=== PATIENT | male | born 1995 | race Caucasian/White ===

== ENCOUNTER 2020-05-30 05:35 | Outpatient (CLI) | payer OTHER ==
[~2020-05-30] VITALS: Ht 172 cm; Wt 79.0 kg
[~2020-05-30 05:35] MED LIST: ACET-2222 PO; ACHD5005 PO; CIPR500T78 PO; DOCU-143 PO; HYDR-757 PO; METH4TAB PO; METR500T PO
[2020-06-06] MEDS ORDERED: DOCU-143 PO (12:00)
[2020-06-06] MEDS ORDERED: ACHD5005 PO (12:00)
== END 2020-06-04 09:02 | disposition home or self-care (01) ==
LOC: PREOP 05:35
PROVIDERS: ATTEND Surgery
DX: Z01.818 Encounter for other preprocedural examination (principal)

== ENCOUNTER 2020-06-06 08:46 | Day surgery (SDC) | payer OTHER ==
[2020-06-06] VITALS (11 sets, daily range): BP systolic 95–135; BP diastolic 51–98
[~2020-06-06] VITALS: Ht 172 cm; Wt 79.0 kg
[2020-06-06] MEDS ORDERED: LIDOCAINE/EPI 1%-1:100,000 (XYLOCAINE) 20ML ONE (08:50)
[2020-06-06] MEDS ORDERED: GLYCOPYRROLATE 0.2 MG/ML (ROBINUL) 2 ML VIAL ONE (09:02)
[2020-06-06] MEDS ORDERED: NEOSTIGMINE 3 MG/3 ML VIAL ONE (09:02)
[2020-06-06] MEDS ORDERED: LIDOCAINE PF 2% 5 ML (XYLOCAINE) VIAL ONE (09:02)
[2020-06-06] MEDS ORDERED: MIDAZOLAM 2 MG/2 ML (VERSED) VIAL ONE (09:02)
[2020-06-06] MEDS ORDERED: ONDANSETRON 4 MG/2 ML (SDV) Z0FRAN ONE (09:02)
[2020-06-06] MEDS ORDERED: SEVOFLURANE (ULTANE) 15 ML INHAL SOLN ONE (09:02)
[2020-06-06] MEDS ORDERED: ROCURONIUM 10 MG/ML 5 ML SYRINGE IV ONE (09:02)
[2020-06-06] MEDS ORDERED: proPOfol 200 MG/20 ML (DIPRIVAN) VIAL IV ONE (09:02)
[2020-06-06] MEDS ORDERED: fentaNYL INJ 100 MCG/2 ML AMP ONE ×2 (09:03→09:56)
[2020-06-06] MEDS ORDERED: ceFAZolin INJECTION 1,000 MG ONE (09:16)
[2020-06-06] MEDS ORDERED: WATER (STERILE) FOR INJECTION 10 ML ONE (09:16)
[2020-06-06] MEDS ORDERED: ceFAZolin INJECTION 1,000 MG in WATER (STERILE) FOR INJECTION 10 ML IV ONE (09:30)
[2020-06-06] MEDS ORDERED: LACTATED RINGERS 1,000 ML IV PRN (09:30)
[2020-06-06] MEDS ORDERED: fentaNYL INJ 100 MCG/2 ML AMP IVP ONE (10:45)
[2020-06-06] MEDS ORDERED: morphine INJ 10 MG/ML 1ML (SYR OR VIAL) IVP ONE (10:45)
--- NOTE | 2020-06-06 11:59 | Discharge Inst-Simple/Standard ---
Discharge Inst-Standard Discharge Medications New, Converted or Re-Newed RX: RX on Chart Patient Instructions/Follow Up Plan of Care/Instructions/FU: 2 weeks Sathish Activity as Tolerated: No Discharge Diet: Regular Diet Other Inst to Patient Follow up Appt: Make appointment for 2 week. Instructions: No lifting greater than 10 pounds. No strenuous activity. May shower in 24 hours, no tub bath or soaking. Use incentive spirometer at home as directed. No Smoking Skin/Wound Care: Keep area clean and dry. No tub baths or soaking. Use soap and water after bowel movements in the shower. Symptoms to Report: Appetite Changes, Extremity Discoloration, Numbness/Tingling, Swelling Increased, Bleeding Excessive, Eyesight Changes, Pain Increased, Urine Color Change, Constipation(Persistent), Fever over 101 degree F, Pain/Pressure in chest, Urinating Difficulty, Cough Up/Vomit Blood, Heart Beat Irreg/Pounding, Pain/Pressure in jaw, Vaginal Bleeding Increase, Cramps in feet or legs, Lightheadedness, Pain/Pressure in shoulder, Diarrhea(Persistent), Memory Changes Suddenly, Questions/Concerns, Weight gain consecutive days, Dizziness/Fainting, Nausea/Vomiting, Shortness of Breath, Weight gain over 2 pounds If questions or concerns contact your physician Or seek help at emergency department. JADIEL KURTZ DO Jun 06, 2020 11:59
[2020-06-06] MEDS ORDERED: ACHD5005 PO (12:00)
[2020-06-06] MEDS ORDERED: DOCU-143 PO (12:00)
--- NOTE | 2020-06-06 12:02 | Progress Note-Post Operative ---
Post-Operative Progess Note Surgeon (s)/Landscaping And Groundskeeping Laborer (s) Surgeon JADIEL KURTZ DO Landscaping And Groundskeeping Laborer: na Pre-Operative Diagnosis pilonidal cyst Post-Operative Diagnosis same Procedure & Operative Findings Date of Procedure 06/06/20 Procedure Performed/Findings excision pilonidal cyst Anesthesia Type general Estimated Blood Loss Estimated blood loss (mL): minimal Specimens/Packing Specimens Removed skin and subcutaneous tissue JADIEL KURTZ DO Jun 06, 2020 12:02
--- NOTE | 2020-06-06 14:50 | Anesthesia-General Post-Op ---
General Patient Condition Mental Status/LOC: Same as Preop Cardiovascular: Satisfactory Nausea/Vomiting: Absent Respiratory: Satisfactory Pain: Controlled Complications: Absent Post Op Complications Complications None Follow Up Care/Instructions Patient Instructions None needed. Anesthesia/Patient Condition Patient Condition Patient is doing well, no complaints, stable vital signs, no apparent adverse anesthesia problems. No complications reported per nursing. PETE STATON CRNA Jun 06, 2020 14:50
--- NOTE | 2020-06-06 16:16 | OPERATIVE REPORT ---
DATE OF SERVICE: 06/06/2020 PREOPERATIVE DIAGNOSIS: Recurrent pilonidal cyst. POSTOPERATIVE DIAGNOSIS: Recurrent pilonidal cyst. PROCEDURE: Excision of recurrent pilonidal cyst 6.5 x 2.5 x 3 cm. SURGEON: Jadiel Bower DO ANESTHESIA: General. ESTIMATED BLOOD LOSS: Minimal. COMPLICATIONS: None. INDICATIONS: The patient is a 25-year-old male with recurrent pilonidal cyst. He understands risks and benefits of procedure and wished to proceed with procedure. Consent was signed in the chart. DESCRIPTION OF PROCEDURE: The patient was taken to the operating suite, was prepped and draped in sterile fashion. Surgical pause was performed. Elliptical incision was made around the pilonidal cyst and evidence of disease. Cautery was used to dissect down through the subcutaneous tissues around the tissue until the sacrum was encountered. This was then continued to be dissected around off of the sacrum until the specimen was completely removed. Hemostasis was achieved. The wound was then irrigated with copious amounts of irrigation and the skin was then closed with 0 Prolene in a vertical mattress in simple interrupted fashion. The area was then washed and dried and sterile bandages were applied. Before closure, local anesthetic was infiltrated throughout the wound area. Job ID: [id number] DocumentID: [id number] Dictated Date: 06/06/2020 12:04:35 Box Blank Machine Operator Helper Date: 06/06/2020 16:15:01 Dictated By: JADIEL BOWER DO
== END 2020-06-06 12:25 ==
LOC: SDC 08:46
PROVIDERS: ATTEND Surgery
DX: L05.91 Pilonidal cyst without abscess (principal)
CPT/HCPCS: 87081

== ENCOUNTER 2020-06-09 12:28 | Emergency (ER) | payer OTHER ==
[~2020-06-09] VITALS: Ht 172.7 cm; Wt 77.1 kg
[2020-06-09] MEDS ORDERED: KETOROLAC 30 MG/ML VIAL ONE (13:13)
[2020-06-09] MEDS ORDERED: NS IV 1000 ML 1,000 ML ONE (13:13)
[2020-06-09] MEDS ORDERED: ONDANSETRON 4 MG/2 ML (SDV) Z0FRAN ONE (13:13)
--- NOTE | 2020-06-09 13:26 | ED GI ---
General Chief Complaint: Abdominal/GI Problems Stated Complaint: L SIDE LOWER BACK PAIN/POST PILONIDAL CYST OP Nursing Triage Note: PT AMB TO [facility] WITH COMPLAINT OF LLQ PAIN. STATES HE HAD PILONDIAL CYST SURGERY ON WEDNESDAY. STATES TOOK A HYDROCODONE AND STOOL SOFTENER EARLIER WITH NO RELIEF OF PAIN. Sepsis Screen: No Definite Risk Source of Information: Patient Exam Limitations: No Limitations History of Present Illness Date Seen by Provider: June 09, 2020 Time Seen by Provider: 13:25 Initial Comments To ER with severe left flank pain. He had a pilonidal cyst done on . That seems to be healing well and is essentially pain-free. He awakened this morning with severe intolerable left flank pain. Timing/Duration: 1-2 Days Severity/Quality: Moderate Location: Flank Radiation: No Radiation Activities at Onset: None Associated Symptoms: Denies Symptoms Allergies and Home Medications Allergies Coded Allergies: No Known Drug Allergies (Unverified , 06/06/20) Home Medications Docusate Sodium 100 Mg Capsule, 100 MG PO DAILY Prescribed by: JADIEL KURTZ on 06/06/20 1200 Hydrocodone/Acetaminophen 1 Each Tablet, 1 EACH PO Q4H PRN for PAIN-MODERATE (5- 7) Prescribed by: JADIEL KURTZ on 06/06/20 1200 Patient Home Medication List Home Medication List Reviewed: Yes Review of Systems Review of Systems Constitutional: see HPI EENTM: No Symptoms Reported Respiratory: No Symptoms Reported Cardiovascular: No Symptoms Reported Gastrointestinal: See HPI Genitourinary: No Symptoms Reported Musculoskeletal: no symptoms reported Skin: no symptoms reported Psychiatric/Neurological: No Symptoms Reported Endocrine: No Symptoms Reported Hematologic/Lymphatic: No Symptoms Reported Past Xfsttqi-Ywrafb-Kmavhy Hx Patient Social History Alcohol Use: Occasionally Uses Smoking Status: Never a Smoker Recent Infectious Disease Expo: No Immunizations Up To Date Tetanus Booster (TDap): Unknown Seasonal Allergies Seasonal Allergies: No Past Medical History Surgeries: Yes (dental, pilonidal cyst) Respiratory: No Currently Using CPAP: No Cardiac: No Neurological: No Genitourinary: No Gastrointestinal: No Musculoskeletal: No Endocrine: No HEENT: No Cancer: No Psychosocial: No Integumentary: No Blood Disorders: No Physical Exam Vital Signs Vital Signs - First Documented 06/09/20 12:46 Pulse 68 Resp 17 B/P (MAP) 145/99 (114) Pulse Ox 99 O2 Delivery Room Air Capillary Refill : Less Than 3 Seconds Height/Weight/BMI Height: 5'7.00" Weight: 155lbs. 0.0oz. 70.855225pv; 25.00 BMI Method:Stated General Appearance: WD/WN, moderate distress (Appears quite uncomfortable, writhing.) Respiratory: normal breath sounds, no respiratory distress, no accessory muscle use Cardiovascular: regular rate, rhythm, no murmur Gastrointestinal: normal bowel sounds, non tender, soft Extremities: normal range of motion, non-tender Neurologic/Psychiatric: alert, normal mood/affect, oriented x 3 Skin: normal color, warm/dry Progress/Results/Core Measures Results/Orders Lab Results Laboratory Tests Test 06/09/20 13:25 Range/Units White Blood Count 12.4 H 4.3-11.0 10^3/uL Red Blood Count 5.61 H 4.30-5.52 10^6/uL Hemoglobin 15.9 13.3-17.7 g/dL Hematocrit 46 40-54 % Mean Corpuscular Volume 81 80-99 fL Mean Corpuscular Hemoglobin 28 25-34 pg Mean Corpuscular Hemoglobin Concent 35 32-36 g/dL Red Cell Distribution Width 11.9 10.0-14.5 % Platelet Count 291 130-400 10^3/uL Mean Platelet Volume 9.6 9.0-12.2 fL Immature Granulocyte % (Auto) 0 % Neutrophils (%) (Auto) 83 H 42-75 % Lymphocytes (%) (Auto) 11 L 12-44 % Monocytes (%) (Auto) 5 0-12 % Eosinophils (%) (Auto) 0 0-10 % Basophils (%) (Auto) 0 0-10 % Neutrophils # (Auto) 10.3 H 1.8-7.8 10^3/uL Lymphocytes # (Auto) 1.4 1.0-4.0 10^3/uL Monocytes # (Auto) 0.7 0.0-1.0 10^3/uL Eosinophils # (Auto) 0.0 0.0-0.3 10^3/uL Basophils # (Auto) 0.1 0.0-0.1 10^3/uL Immature Granulocyte # (Auto) 0.1 0.0-0.1 10^3/uL Sodium Level 137 135-145 MMOL/L Potassium Level 3.8 3.6-5.0 MMOL/L Chloride Level 103 98-107 MMOL/L Glucose Level 115 H 70-105 MG/DL Calcium Level 10.1 8.5-10.1 MG/DL Corrected Calcium 8.5-10.1 MG/DL Total Protein 8.0 6.4-8.2 GM/DL Albumin 4.6 H 3.2-4.5 GM/DL My Orders Orders - JARON MCNALLY APRN Cbc With Automated Diff (06/09/20 13:22) Comprehensive Metabolic Panel (06/09/20 13:22) Ua Culture If Indicated (06/09/20 13:22) Ed Iv/Invasive Line Start (06/09/20 13:22) Ct Abd/Pelvis Wo(Kidney Stone) (06/09/20 13:22) Abdomen/Kub 1view (06/09/20 13:22) Ns Iv 1000 Ml (Sodium Chloride 0.9%) (06/09/20 13:30) Ketorolac Injection (Toradol Injection) (06/09/20 13:30) Ondansetron Injection (Zofran Injectio (06/09/20 13:30) Medications Given in ED Current Medications Medications Dose Ordered Sig/Aiden Route Start Time Stop Time Status Last Admin Dose Admin Ketorolac Tromethamine 30 mg ONCE ONCE IVP 06/09/20 13:30 06/09/20 13:31 DC 06/09/20 13:24 30 MG Ondansetron HCl 4 mg ONCE ONCE IVP 06/09/20 13:30 06/09/20 13:31 DC 06/09/20 13:24 4 MG Vital Signs/I&O 06/09/20 12:46 Pulse 68 Resp 17 B/P (MAP) 145/99 (114) Pulse Ox 99 O2 Delivery Room Air Blood Pressure Mean: 114 Departure Communication (Admissions) [facility] REC#: [id number] PT STATUS: REG ER : 1995 PHYSICIAN: JARON MCNALLY APRN ADMIT DATE: 06/09/20/ER Draft Date of Exam:06/09/20 CT ABD/PELVIS WO(KIDNEY STONE) PROCEDURE: CT urinary tract, rule out kidney stone. TECHNIQUE: Multiple contiguous axial images were obtained through the abdomen and pelvis without the use of intravenous contrast. Auto Exposure Controls were utilized during the CT exam to meet ALARA standards for radiation dose reduction. INDICATION: Left flank pain. COMPARISON: None. DISCUSSION: The lung bases are well aerated. Normal heart size. No pleural or pericardial fluid. The gallbladder, liver, pancreas, stomach, spleen, and adrenal glands are unremarkable. There is a 3 mm stone within the proximal left ureter with mild left hydronephrosis. 2 mm nonobstructing right renal calculus. No hydronephrosis on the right. No evidence for appendicitis. No obstruction, pneumatosis, or pneumoperitoneum. No ascites or pathologically enlarged lymph nodes identified. The aorta is normal in caliber. Bladder is mostly decompressed. Prostate is normal in size. No acute osseous abnormality identified. IMPRESSION: 1. 3 mm stone within the proximal left ureter with mild left hydronephrosis. 2. Punctate nonobstructing right renal calculus. Dictated on workstation # [id number] Dict: 06/09/20 1344 Trans: 06/09/20 1349 [id number] [id number] Interpreted by: EDNA ERIC MD Electronically signed by: Impression Primary Impression: Left ureteral stone Disposition: HOME, SELF-CARE Condition: Improved Departure-Patient Inst. Decision time for Depature: 13:49 Referrals: NO,LOCAL PHYSICIAN (PCP) Primary Care Physician DEYA POTTS MD Patient Instructions: Kidney Stone, Adult ED Add. Discharge Instructions: 1. Return to ER for any concerns. Take ibuprofen 800 mg which is 4 tablets every 8 hours in addition to the hydrocodone. Try to stay ahead of the pain. We will provide you with a strainer to urinate through. You should be able to see the stone when you pass it which may take anywhere from 0-3 or 4 days. If you do not pass it call To will. Return to ER for any intolerable pain fevers vomiting. All discharge instructions reviewed with patient and/or family. Voiced understanding. Scripts Cefuroxime Axetil (Cefuroxime) 250 Mg Tablet 250 MG PO BID, #10 TAB Prov: JARON MCNALLY APRN 06/09/20 JARON MCNALLY APRN June 09, 2020 13:26
[2020-06-09 13:29] LABS: BASOPHILS # (AUTO) 0.1 10^3/uL (0.0-0.1); BASOPHILS % (AUTO) 0 % (0-10); EOSINOPHILS % (AUTO) 0 % (0-10); HEMATOCRIT 46 % (40-54); HEMOGLOBIN 15.9 g/dL (13.3-17.7); LYMPHOCYTES # (AUTO) 1.4 10^3/uL (1.0-4.0); LYMPHOCYTES % (AUTO) 11 % (12-44); MEAN CORPUSCULAR HEMOGLOBIN 28 pg (25-34); MEAN CORPUSCULAR HGB CONC 35 g/dL (32-36); MEAN CORPUSCULAR VOLUME 81 fL (80-99); MEAN PLATELET VOLUME 9.6 fL (9.0-12.2); MONOCYTES # (AUTO) 0.7 10^3/uL (0.0-1.0); MONOCYTES % (AUTO) 5 % (0-12); NEUTROPHILS # (AUTO) 10.3 10^3/uL (1.8-7.8); NEUTROPHILS % (AUTO) 83 % (42-75); PLATELET COUNT 291 10^3/uL (130-400); WHITE BLOOD COUNT 12.4 10^3/uL (4.3-11.0)
[2020-06-09] MEDS ORDERED: NS IV 1000 ML 1,000 ML IV SCH (13:30)
[2020-06-09] MEDS ORDERED: ONDANSETRON 4 MG/2 ML (SDV) Z0FRAN IVP ONE (13:30)
[2020-06-09] MEDS ORDERED: KETOROLAC 30 MG/ML VIAL IVP ONE (13:30)
--- NOTE | 2020-06-09 13:50 | Diagnostic Imaging Report ---
PROCEDURE: CT urinary tract, rule out kidney stone. TECHNIQUE: Multiple contiguous axial images were obtained through the abdomen and pelvis without the use of intravenous contrast. Auto Exposure Controls were utilized during the CT exam to meet ALARA standards for radiation dose reduction. INDICATION: Left flank pain. COMPARISON: None. DISCUSSION: The lung bases are well aerated. Normal heart size. No pleural or pericardial fluid. The gallbladder, liver, pancreas, stomach, spleen, and adrenal glands are unremarkable. There is a 3 mm stone within the proximal left ureter with mild left hydronephrosis. 2 mm nonobstructing right renal calculus. No hydronephrosis on the right. No evidence for appendicitis. No obstruction, pneumatosis, or pneumoperitoneum. No ascites or pathologically enlarged lymph nodes identified. The aorta is normal in caliber. Bladder is mostly decompressed. Prostate is normal in size. No acute osseous abnormality identified. IMPRESSION: 1. 3 mm stone within the proximal left ureter with mild left hydronephrosis. 2. Punctate nonobstructing right renal calculus. Dictated by: Dictated on workstation # [id number]
[2020-06-09 13:51] LABS: ALBUMIN 4.6 GM/DL (3.2-4.5); CHLORIDE 103 MMOL/L (98-107); POTASSIUM 3.8 MMOL/L (3.6-5.0); SODIUM 137 MMOL/L (135-145)
[2020-06-09 13:53] LABS: CALCIUM 10.1 MG/DL (8.5-10.1)
[2020-06-09 13:54] LABS: GLUCOSE 115 MG/DL (70-105)
[2020-06-09 13:55] LABS: CARBON DIOXIDE 23 MMOL/L (21-32)
[2020-06-09 13:56] LABS: BILIRUBIN,TOTAL 0.8 MG/DL (0.1-1.0)
[2020-06-09] MEDS ORDERED: CEFU250T80 PO (13:56)
[2020-06-09 13:57] LABS: ALKALINE PHOSPHATASE 82 U/L (40-136)
[2020-06-09 13:58] LABS: CREATININE SERUM 1.74 MG/DL (0.60-1.30); GFR ESTIMATED 47
[2020-06-09 13:59] LABS: BUN/CREATININE RATIO 10
[2020-06-09 14:00] LABS: ALANINE AMINOTRANSFERASE 31 U/L (0-55)
[2020-06-09] MEDS ORDERED: morphine INJ 10 MG/ML 1ML (SYR OR VIAL) IVP STA (14:31)
[2020-06-09 14:50] LABS: BILIRUBIN,URINE NEGATIVE (NEGATIVE); CLARITY,URINE SL CLOUDY; COLOR,URINE YELLOW; GLUCOSE, URINE (UA) NEGATIVE (NEGATIVE); KETONES,URINE NEGATIVE (NEGATIVE); LEUKOCYTE ESTERASE ,URINE NEGATIVE (NEGATIVE); NITRITE,URINE NEGATIVE (NEGATIVE); PROTEIN,URINE 1+ (NEGATIVE)
[2020-06-09 14:52] LABS: AMORPHOUS SEDIMENT,UR FEW AMOR URATES /LPF; BACTERIA,URINE NEGATIVE /HPF; CALCIUM OXALATE CRYSTALS,UR MODERATE /LPF; RBC,URINE >100 /HPF; WBC,URINE 0-2 /HPF
[2020-06-09 15:04] VITALS: BP 133/86
--- NOTE | 2020-06-09 15:08 | Diagnostic Imaging Report ---
Indication: Left flank pain. Comparison: CT earlier today. Discussion: Two views of the abdomen were obtained. There is a 3 mm stone projected within the proximal left ureter at the level of the left L3 transverse process. Unremarkable bowel gas pattern. No other pathologic calcification. Impression: 3 mm left renal stone projected at the level of the left L3 transverse process. Dictated by: Dictated on workstation # [id number]
== END 2020-06-09 15:04 | disposition home or self-care (01) ==
LOC: EDUNIT# 12:28 → ER 12:29
DX: N13.2 Hydronephrosis with renal and ureteral calculous obstruction (principal)
CPT/HCPCS: 36415; 74018; 74176; 80053; 81000; 85025

== ENCOUNTER 2021-02-13 05:31 | Outpatient (CLI) | payer SELFPAY ==
[~2021-02-13] VITALS: Ht 172.7 cm; Wt 76.8 kg
[~2021-02-13 05:31] MED LIST changes: +CEFU250T80 PO
== END 2021-02-13 11:35 | disposition home or self-care (01) ==
LOC: PREOP 05:31
PROVIDERS: ATTEND Surgery
DX: Z01.818 Encounter for other preprocedural examination (principal)

== ENCOUNTER 2021-02-20 11:29 | Day surgery (SDC) | payer OTHER ==
[2021-02-20] VITALS (11 sets, daily range): BP systolic 100–126; BP diastolic 54–82
[~2021-02-20] VITALS: Ht 172.7 cm; Wt 76.8 kg
[2021-02-20] MEDS ORDERED: LIDOCAINE/EPI 1%-1:200,000 (XYLOCAINE) 30 ML VIAL ONE (11:49)
[2021-02-20] MEDS ORDERED: ceFAZolin INJECTION 1,000 MG ONE (11:50)
[2021-02-20] MEDS ORDERED: ceFAZolin INJECTION 1,000 MG VIAL IV ONE (12:00)
[2021-02-20] MEDS ORDERED: LACTATED RINGERS 1,000 ML IV PRN (12:00)
[2021-02-20] MEDS ORDERED: SEVOFLURANE (ULTANE) 15 ML INHAL SOLN ONE ×2 (12:33→13:32)
[2021-02-20] MEDS ORDERED: ROCURONIUM 10 MG/ML 5 ML SYRINGE IV ONE (12:33)
[2021-02-20] MEDS ORDERED: ONDANSETRON 4 MG/2 ML (SDV) Z0FRAN ONE (12:33)
[2021-02-20] MEDS ORDERED: proPOfol 200 MG/20 ML (DIPRIVAN) VIAL IV ONE (12:33)
[2021-02-20] MEDS ORDERED: LIDOCAINE PF 2% 5 ML (XYLOCAINE) VIAL ONE (12:33)
[2021-02-20] MEDS ORDERED: MIDAZOLAM 2 MG/2 ML (VERSED) VIAL ONE (12:34)
[2021-02-20] MEDS ORDERED: fentaNYL INJ 100 MCG/2 ML AMP ONE (12:34)
--- NOTE | 2021-02-20 13:47 | Anesthesia-General Post-Op ---
General Patient Condition Mental Status/LOC: Same as Preop Cardiovascular: Satisfactory Nausea/Vomiting: Absent Respiratory: Satisfactory Pain: Controlled Complications: Absent Post Op Complications Complications None Follow Up Care/Instructions Patient Instructions None needed. Anesthesia/Patient Condition Patient Condition Patient is doing well, no complaints, stable vital signs, no apparent adverse anesthesia problems. No complications reported per nursing. SANG KAUFFMAN CRNA Feb 20, 2021 13:47
[2021-02-20] MEDS ORDERED: MEPERIDINE (DEMEROL) INJ 50 MG/ML IVP ONE (14:00)
[2021-02-20] MEDS ORDERED: fentaNYL INJ 100 MCG/2 ML AMP IVP ONE (14:00)
[2021-02-20] MEDS ORDERED: ONDANSETRON 4 MG/2 ML (SDV) Z0FRAN IVP PRN (14:00)
[2021-02-20] MEDS ORDERED: morphine INJ 10 MG/ML 1ML (SYR OR VIAL) IVP ONE (14:00)
[2021-02-20] MEDS ORDERED: DOCU-143 PO (14:48)
[2021-02-20] MEDS ORDERED: ACHD5005 PO (14:48)
--- NOTE | 2021-02-20 14:54 | Discharge Inst-Simple/Standard ---
Discharge Inst-Standard Discharge Medications New, Converted or Re-Newed RX: Transmitted to Pharmacy Patient Instructions/Follow Up Plan of Care/Instructions/FU: 1-2 weeks Sathish. Need daily irrigation and packing at least 1-2 times per day. Irrigate with saline and pack with kerlex and secure. If you need help to do dressing changes notify the office. Activity as Tolerated: Yes Discharge Diet: Regular Diet Other Inst to Patient Follow up Appt: Make appointment for 2 week. Instructions: No lifting greater than 10 pounds. No strenuous activity. May shower in 24 hours, no tub bath or soaking. Use incentive spirometer at home as directed. No Smoking Skin/Wound Care: Irrigate with saline and pack with Kerlex daily and as needed. Keep area clean and dry. After bowel movements would shower to clean and repack. Symptoms to Report: Appetite Changes, Extremity Discoloration, Numbness/Tingling, Swelling Increased, Bleeding Excessive, Eyesight Changes, Pain Increased, Urine Color Change, Constipation(Persistent), Fever over 101 degree F, Pain/Pressure in chest, Urinating Difficulty, Cough Up/Vomit Blood, Heart Beat Irreg/Pounding, Pain/Pressure in jaw, Vaginal Bleeding Increase, Cramps in feet or legs, Lightheadedness, Pain/Pressure in shoulder, Diarrhea(Persistent), Memory Changes Suddenly, Questions/Concerns, Weight gain consecutive days, Dizziness/Fainting, Nausea/Vomiting, Shortness of Breath, Weight gain over 2 pounds If questions or concerns contact your physician Or seek help at emergency department. JADIEL KURTZ DO Feb 20, 2021 14:54
[2021-02-20] MEDS ORDERED: HYDROcodone/APAP 5 MG/325 MG (LORTAB) TAB PO ONE (15:15)
[2021-02-20] MEDS ORDERED: HYDROcodone/APAP 5 MG/325 MG (LORTAB) TAB ONE (15:16)
--- NOTE | 2021-02-20 15:39 | Progress Note-Post Operative ---
Post-Operative Progess Note Surgeon (s)/Music Therapist (s) Surgeon JADIEL KURTZ DO Music Therapist: na Pre-Operative Diagnosis pilonidal cyst Post-Operative Diagnosis same Procedure & Operative Findings Date of Procedure 02/20/21 Procedure Performed/Findings reexcision pilonidal cyst Anesthesia Type general Estimated Blood Loss Estimated blood loss (mL): minimal Specimens/Packing Specimens Removed pilonidal cyst JADIEL KURTZ DO Feb 20, 2021 15:39
--- NOTE | 2021-02-21 03:13 | OPERATIVE REPORT ---
DATE OF SERVICE: 02/20/2021 PREOPERATIVE DIAGNOSIS: Recurrent pilonidal cyst. POSTOPERATIVE DIAGNOSIS: Recurrent pilonidal cyst. PROCEDURE PERFORMED: Reexcision pilonidal cyst 2 x 9 x 3.5 cm. SURGEON: Jadiel Bower DO ANESTHESIA: General. ESTIMATED BLOOD LOSS: Minimal. COMPLICATIONS: None. INDICATIONS: The patient is a 26-year-old male with a recurrent pilonidal cyst. He understands risks and benefits of procedure and wishes to proceed. Consent was signed in the chart. DESCRIPTION OF PROCEDURE: The patient was taken to the operating suite, placed in prone position. Timeout was performed. Local anesthetic was infiltrated around the area of pilonidal cyst. An elliptical incision measuring 2 x 9 cm was then made. Cautery was used to dissect around this area, taken down all the way to the sacral fascia and removing the skin and subcutaneous tissue. No visualization remnant of pilonidal cyst present at the margins of resection. The wound was then irrigated with copious amounts of irrigation. Hemostasis was achieved. The wound was then packed with Kerlix and sterile bandage was applied. The patient tolerated procedure well without any complications, taken to recovery room in stable condition. The patient discussed need for daily wound care and given instructions. Job ID: [id number] DocumentID: [id number] Dictated Date: 02/20/2021 20:31:17 Food Clerk Date: 02/21/2021 03:12:24 Dictated By: JADIEL BOWER DO
== END 2021-02-20 15:45 | disposition home or self-care (01) ==
LOC: SDC 11:29
PROVIDERS: ATTEND Surgery
DX: L05.91 Pilonidal cyst without abscess (principal)
CPT/HCPCS: 87081; 88304